=== PATIENT | female | born 2000 | race Caucasian/White ===

== ENCOUNTER 2020-10-18 15:08 | Emergency (ER) | payer OTHER ==
[~2020-10-18] VITALS: Ht 165.1 cm; Wt 112.6 kg
[2020-10-18] MEDS ORDERED: DEPO200I7 IM (15:21)
[2020-10-18] MEDS ORDERED: DEPO150I12 IM (15:21)
[2020-10-18] MEDS ORDERED: LEXA1TAB PO (15:21)
[2020-10-18] MEDS ORDERED: KETOROLAC TROMETHAMINE 10 MG TAB PO ONE (16:15)
[2020-10-18 17:39] VITALS: BP 132/77
== END 2020-10-18 17:41 | disposition home or self-care (01) ==
LOC: M ED 15:08
DX: N89.8 Other specified noninflammatory disorders of vagina (principal); Z79.899 Other long term (current) drug therapy; Z79.3 Long term (current) use of hormonal contraceptives